=== PATIENT | male | born 1955 | race Caucasian/White ===

== ENCOUNTER → 2016-10-04 | Outpatient (CLI) | payer OTHER ==
--- NOTE | 2016-10-04 18:29 | DX ---
Lumbar spine, 4 views, including lateral flexion and extension views. October 04, 2016. HISTORY: Postop follow-up. Comparison examination: November 10, 2015. FINDINGS: Again demonstrated are features of instrumentation and fusion with intervertebral graft jonny cement at L4, L5, and S1 with pedicle screws at all 3 levels. Alignment at the operative bed is anato jennifer, without hardware complication. Other lumbar segments appear normal. No features of instability on lateral flexion and extension posi tioning. IMPRESSION: 1. Status post instrumentation fusion from L4 through S1 without complication.
== END ==
LOC: CIMAGING 15:40
PROVIDERS: ATTEND Physical Medicine & Rehabilitation Neuromuscular Medicine
DX: Z09 Encounter for follow-up examination after completed treatment for conditions other than malignant neoplasm (principal); Z98.1 Arthrodesis status
CPT/HCPCS: 72100-PO

== ENCOUNTER → 2018-01-21 | Outpatient (CLI) | payer OTHER | LOC: BMCIMAGING 09:56 | PROVIDERS: ATTEND Family Medicine | DX: Z13.820 Encounter for screening for osteoporosis (principal); M85.89 Other specified disorders of bone density and structure, multiple sites; E29.1 Testicular hypofunction; E55.9 Vitamin D deficiency, unspecified; M54.9 Dorsalgia, unspecified; Z79.01 Long term (current) use of anticoagulants ==

== ENCOUNTER → 2018-09-18 | Outpatient (CLI) | payer OTHER | LOC: GIMAGING 14:51 → EDSTATUS 16:10 | PROVIDERS: ATTEND Family Medicine | DX: R05 Cough (principal); J40 Bronchitis, not specified as acute or chronic | CPT/HCPCS: 71046-PO ==

== ENCOUNTER → 2018-12-19 | Outpatient (CLI) | payer OTHER | LOC: EMCIMAGING 09:05 | PROVIDERS: ATTEND Anesthesiology Pain Medicine | DX: M51.16 Intervertebral disc disorders with radiculopathy, lumbar region (principal); M47.26 Other spondylosis with radiculopathy, lumbar region; M48.061 Spinal stenosis, lumbar region without neurogenic claudication; Z98.1 Arthrodesis status | CPT/HCPCS: 72148-PN ==

== ENCOUNTER → 2019-01-01 | Outpatient (CLI) | payer OTHER | LOC: EMCIMAGING 09:44 | PROVIDERS: ATTEND Anesthesiology Pain Medicine | DX: S46.011A Strain of muscle(s) and tendon(s) of the rotator cuff of right shoulder, initial encounter (principal); M75.51 Bursitis of right shoulder | CPT/HCPCS: 72141-PN; 73221-PN ==